=== PATIENT | male | born 1950 | race Caucasian/White ===

== ENCOUNTER 2022-07-05 18:54 | Emergency (ER) | payer OTHER ==
[~2022-07-05] VITALS: Ht 177.8 cm; Wt 68.0 kg
[~2022-07-05 18:54] MED LIST: ALBU.083IS IH; ASPI325 PO; ATOR40TA PO; DILT30 PO; ISOMON20 PO; LISI5 PO
== END 2022-07-06 00:32 ==
LOC: ER 18:54
DX: I46.9 Cardiac arrest, cause unspecified (principal); Z79.899 Other long term (current) drug therapy; Z79.82 Long term (current) use of aspirin
CPT/HCPCS: 92950; 99285-25